=== PATIENT | male | born 1930 | race Caucasian/White ===

== ENCOUNTER → 2016-05-06 | Outpatient (REF) | payer MEDICARE ==
[~2016-05-06] MED LIST: CALC-173 PO; DONETAB6 PO; VITMTA PO
[2016-05-06 18:29] LABS: BASO % 0.2 % (0.0-1.0); EOS # 0.1 K/mm3 (0.0-0.50); EOS % 1.7 % (0.0-3.0); LARGE UNSTAINED CELL # 0.1 K/mm3 (0.0-0.4); LARGE UNSTAINED CELL % 2.3 % (0.0-4.0); LYMPH # 1.6 K/mm3 (1.5-4.5); MEAN CORPUSCULAR HEMOGLOBIN 32.6 pg (27.0-33.0); MEAN CORPUSCULAR HGB CONC 34.3 g/dl (32.0-36.5); MONO # 0.3 K/mm3 (0.0-0.8); MONO % 7.6 % (0.0-5.0); NEUTROPHILS # 2.1 K/mm3 (1.8-7.7); NEUTROPHILS % 51.3 % (36.0-66.0); PLATELET COUNT, AUTOMATED 100 k/mm3 (150-450); RED CELL DISTRIBUTION WIDTH 15.2 % (11.5-14.5); WHITE BLOOD COUNT 4.1 K/mm3 (4.0-10.0)
[2016-05-06 18:33] LABS: ALBUMIN 3.1 GM/DL (3.2-5.2); ALBUMIN/GLOBULIN RATIO 0.97 (1.00-1.93); ALKALINE PHOSPHATASE 90 U/L (45-117); ALT/SGPT 19 U/L (12-78); ANION GAP 9 MEQ/L (8-16); AST/SGOT 18 U/L (15-37); BILIRUBIN,TOTAL 0.9 MG/DL (0.2-1.0); BLOOD UREA NITROGEN 13 MG/DL (7-18); CALCIUM LEVEL 8.3 MG/DL (8.8-10.2); CARBON DIOXIDE LEVEL 26 MEQ/L (21-32); CHLORIDE LEVEL 108 MEQ/L (98-107); CREATININE FOR GFR 0.64 MG/DL (0.70-1.30); GLOMERULAR FILTRATION RATE > 60.0 (>35); GLUCOSE, FASTING 112 MG/DL (83-110); POTASSIUM SERUM 3.8 MEQ/L (3.5-5.1); SODIUM LEVEL 143 MEQ/L (136-145); TOTAL PROTEIN 6.3 GM/DL (6.4-8.2)
== END ==
LOC: M SFHCCLAY 09:31
PROVIDERS: ATTEND Family Medicine
DX: F43.21 Adjustment disorder with depressed mood (principal); G30.9 Alzheimer's disease, unspecified

== ENCOUNTER → 2016-05-26 | Outpatient (REF) | payer MEDICARE | LOC: M SFHCCLAY 12:01 | PROVIDERS: ATTEND Nurse Practitioner | DX: N30.01 Acute cystitis with hematuria (principal) ==

== ENCOUNTER → 2016-06-10 | Outpatient (REF) | payer MEDICARE | LOC: M SFHCCLAY 11:16 | PROVIDERS: ATTEND Family Medicine | DX: R31.9 Hematuria, unspecified (principal); Z53.8 Procedure and treatment not carried out for other reasons ==

== ENCOUNTER → 2016-07-01 | Outpatient (REF) | payer MEDICARE | LOC: M SFHCCLAY 11:41 | PROVIDERS: ATTEND Nurse Practitioner Family | DX: N39.0 Urinary tract infection, site not specified (principal) ==

== ENCOUNTER → 2016-07-23 | Outpatient (REF) | payer MEDICARE | LOC: M SFHCCLAY 14:36 | PROVIDERS: ATTEND Family Medicine | DX: C44.629 Squamous cell carcinoma of skin of left upper limb, including shoulder (principal) ==

== ENCOUNTER 2016-08-03 15:29 | Emergency (ER) | payer MEDICARE ==
[~2016-08-03] VITALS: Ht 182.9 cm; Wt 81.6 kg
[2016-08-03] MEDS ORDERED: NS 500 ML IV ONE (16:00)
--- NOTE | 2016-08-03 16:36 | REP ---
Portable chest, 04:18 p.m., 08/03/1926, 18, single AP view the patient sitting: Comparison is 2015. The lung llanos are clear. The cardiac size is normal. The loc, mediastinum, and bony thorax are unremarkable. Impression: Negative portable chest. Signed by Freddy Spencer MD 08/03/2016 04:27 P
[2016-08-03 16:37] LABS: BASO % 0.1 % (0.0-1.0); EOS # 0.1 K/mm3 (0.0-0.50); EOS % 1.6 % (0.0-3.0); LARGE UNSTAINED CELL # 0.1 K/mm3 (0.0-0.4); LARGE UNSTAINED CELL % 2.8 % (0.0-4.0); LYMPH # 1.7 K/mm3 (1.5-4.5); LYMPH % 39.3 % (24.0-44.0); MEAN CORPUSCULAR HEMOGLOBIN 32.4 pg (27.0-33.0); MEAN CORPUSCULAR HGB CONC 34.1 g/dl (32.0-36.5); MEAN CORPUSCULAR VOLUME 94.9 fl (80.0-96.0); MONO # 0.3 K/mm3 (0.0-0.8); MONO % 7.6 % (0.0-5.0); NEUTROPHILS # 1.9 K/mm3 (1.8-7.7); NEUTROPHILS % 48.5 % (36.0-66.0); PLATELET COUNT, AUTOMATED 111 k/mm3 (150-450); RED CELL DISTRIBUTION WIDTH 15.5 % (11.5-14.5)
[2016-08-03 17:11] LABS: ALBUMIN 2.8 GM/DL (3.2-5.2); ALKALINE PHOSPHATASE 89 U/L (45-117); ALT/SGPT 21 U/L (12-78); ANION GAP 8 MEQ/L (8-16); AST/SGOT 19 U/L (15-37); BILIRUBIN,DIRECT 0.3 MG/DL (0.0-0.2); BILIRUBIN,TOTAL 1.4 MG/DL (0.2-1.0); BLOOD UREA NITROGEN 16 MG/DL (7-18); CALCIUM LEVEL 8.8 MG/DL (8.8-10.2); CARBON DIOXIDE LEVEL 24 MEQ/L (21-32); CHLORIDE LEVEL 110 MEQ/L (98-107); CREATININE FOR GFR 0.62 MG/DL (0.70-1.30); GLOMERULAR FILTRATION RATE > 60.0 (>35); GLUCOSE, FASTING 80 MG/DL (83-110); POTASSIUM SERUM 3.8 MEQ/L (3.5-5.1); SODIUM LEVEL 142 MEQ/L (136-145); TOTAL PROTEIN 6.3 GM/DL (6.4-8.2)
[2016-08-03 19:45] LABS: CALCIUM OXALATE CRYSTALS SMALL
[2016-08-03] MEDS ORDERED: MACR100C3 PO (21:41)
[2016-08-03 21:46] VITALS: BP 142/63
[2016-08-03] MEDS ORDERED: NITR25SU3 PO (22:04)
--- NOTE | 2016-08-04 08:19 | ECGEPIP ---
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
== END 2016-08-03 22:37 | disposition home or self-care (01) ==
LOC: EDBD 15:29 → M ED 17:22
DX: G30.9 Alzheimer's disease, unspecified (principal); Z79.899 Other long term (current) drug therapy; Z88.1 Allergy status to other antibiotic agents

== ENCOUNTER 2016-09-06 19:50 | Emergency (ER) | payer MEDICARE ==
[~2016-09-06 19:50] MED LIST changes: +MACR100C43 PO; +NITR25SU3 PO
[2016-09-06 21:14] LABS: BASO % 0.2 % (0.0-1.0); EOS % 1.1 % (0.0-3.0); LARGE UNSTAINED CELL # 0.1 K/mm3 (0.0-0.4); LARGE UNSTAINED CELL % 2.2 % (0.0-4.0); LYMPH # 1.3 K/mm3 (1.5-4.5); LYMPH % 25.1 % (24.0-44.0); MEAN CORPUSCULAR HEMOGLOBIN 32.5 pg (27.0-33.0); MEAN CORPUSCULAR VOLUME 95.4 fl (80.0-96.0); MONO # 0.4 K/mm3 (0.0-0.8); MONO % 9.4 % (0.0-5.0); NEUTROPHILS # 2.9 K/mm3 (1.8-7.7); NEUTROPHILS % 62.1 % (36.0-66.0); PLATELET COUNT, AUTOMATED 114 k/mm3 (150-450); RED CELL DISTRIBUTION WIDTH 15.7 % (11.5-14.5); WHITE BLOOD COUNT 4.6 K/mm3 (4.0-10.0)
[2016-09-06 21:38] LABS: ALBUMIN 2.6 GM/DL (3.2-5.2); ALBUMIN/GLOBULIN RATIO 0.84 (1.00-1.93); ALKALINE PHOSPHATASE 158 U/L (45-117); ALT/SGPT 27 U/L (12-78); ANION GAP 5 MEQ/L (8-16); AST/SGOT 20 U/L (15-37); BILIRUBIN,DIRECT 0.5 MG/DL (0.0-0.2); BILIRUBIN,TOTAL 1.3 MG/DL (0.2-1.0); BLOOD UREA NITROGEN 13 MG/DL (7-18); CALCIUM LEVEL 8.7 MG/DL (8.8-10.2); CARBON DIOXIDE LEVEL 30 MEQ/L (21-32); CHLORIDE LEVEL 108 MEQ/L (98-107); CREATININE FOR GFR 0.78 MG/DL (0.70-1.30); GLOMERULAR FILTRATION RATE > 60.0 (>35); GLUCOSE, FASTING 111 MG/DL (83-110); SODIUM LEVEL 143 MEQ/L (136-145); TOTAL PROTEIN 5.7 GM/DL (6.4-8.2)
--- NOTE | 2016-09-06 22:10 | REPUSA ---
CLINICAL HISTORY: Fall, AMS COMPARISON: No study for comparison is available at the time of interpretation. TECHNIQUE: Head CT without contrast Brain: There is moderate diffuse parenchymal atrophy. There is periventricular white matter low atten uation consistent with small vessel ischemic change. No intracranial hemorrhage, hydrocephalus, acute parenchymal edema or evident mass. Calvarium: Unremarkable. Sinuses (partially visualized): Clear. IMPRESSION: Chronic changes of small vessel ischemic disease, without intracranial hemorrhage.
[2016-09-06 23:28] VITALS: BP 116/65
--- NOTE | 2016-09-07 07:23 | REP ---
AP pelvis and bilateral hips: AP pelvis: Comparison is a CT abdomen and pelvis dated 10/22/2015. No pelvic fracture is identified. The sacroiliac articulations and/or left hip articulations are unremarkable. There are calcifications inferiorly in the pelvis bilaterally, unchanged from the comparison CT, likely phleboliths. Impression: No pelvic fracture. Right hip two views: There is no fracture or dislocation. Mineralization joint space are unremarkable. No femoral head deformity. Impression: Negative right hip. Left hip two views: There is no fracture or dislocation. Mineralization joint space are normal. There are no calcifications or foreign bodies. Impression: Negative left hip. Signed by Freddy Spencer MD 09/07/2016 07:14 A
== END 2016-09-06 23:40 | disposition home or self-care (01) ==
LOC: M ED 19:50 → EDBD 19:50 → M ED 23:40
DX: Z91.81 History of falling (principal); G30.9 Alzheimer's disease, unspecified; F02.80 Dementia in other diseases classified elsewhere, unspecified severity, without behavioral disturbance, psychotic disturbance, mood disturbance, and anxiety

== ENCOUNTER 2016-11-10 19:15 | Observation (INO) | payer MEDICARE ==
[~2016-11-10] VITALS: Ht 182.9 cm; Wt 71.0 kg
[2016-11-10 21:01] LABS: BASO % 0.2 % (0.0-1.0); EOS % 0.8 % (0.0-3.0); LARGE UNSTAINED CELL # 0.2 K/mm3 (0.0-0.4); LARGE UNSTAINED CELL % 5.4 % (0.0-4.0); LYMPH # 1.3 K/mm3 (1.5-4.5); LYMPH % 35.7 % (24.0-44.0); MEAN CORPUSCULAR VOLUME 94.3 fl (80.0-96.0); MONO # 0.4 K/mm3 (0.0-0.8); MONO % 11.3 % (0.0-5.0); NEUTROPHILS # 1.7 K/mm3 (1.8-7.7); NEUTROPHILS % 46.5 % (36.0-66.0); PLATELET COUNT, AUTOMATED 118 k/mm3 (150-450); WHITE BLOOD COUNT 3.7 K/mm3 (4.0-10.0)
[2016-11-10 21:55] LABS: ALBUMIN 2.5 GM/DL (3.2-5.2); ALBUMIN/GLOBULIN RATIO 0.74 (1.00-1.93); ALKALINE PHOSPHATASE 106 U/L (45-117); ALT/SGPT 19 U/L (12-78); ANION GAP 3 MEQ/L (8-16); AST/SGOT 27 U/L (15-37); BILIRUBIN,DIRECT 0.3 MG/DL (0.0-0.2); BILIRUBIN,TOTAL 1.2 MG/DL (0.2-1.0); BLOOD UREA NITROGEN 11 MG/DL (7-18); CALCIUM LEVEL 8.8 MG/DL (8.8-10.2); CARBON DIOXIDE LEVEL 30 MEQ/L (21-32); CHLORIDE LEVEL 107 MEQ/L (98-107); CREATININE FOR GFR 0.47 MG/DL (0.70-1.30); GLOMERULAR FILTRATION RATE > 60.0 (>35); GLUCOSE, FASTING 74 MG/DL (83-110); POTASSIUM SERUM 4.5 MEQ/L (3.5-5.1); SODIUM LEVEL 140 MEQ/L (136-145); TOTAL PROTEIN 5.9 GM/DL (6.4-8.2)
[2016-11-10] MEDS ORDERED: NS 500 ML IV ONE (22:15)
[2016-11-10 22:31] LABS: T UPTAKE 33 % (33-40); THYROXINE (T4) 8.5 UG/DL (4.5-12.0)
[2016-11-10] MEDS ORDERED: patient comment (23:26)
[2016-11-10] MEDS ORDERED: PATIENT COMMENT (23:28)
[2016-11-10] MEDS ORDERED: ACETAMINOPHEN TAB 650MG DOSE (2X325MG) PO PRN (23:45)
[2016-11-11] MEDS ORDERED: NS 500 ML IV ONE (00:15)
--- NOTE | 2016-11-11 01:11 | HPE ---
DATE OF ADMISSION: 11/10/2016 PRIMARY CARE PROVIDER: Dr. 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 Patient is not able to answer questions due to baseline dementia. Information was gathered from the patient's daughters. Per patient's proxy, at baseline patient had intermittent decrease in oral intake; however, sometimes he can tolerate some liquids. For the past few days, patient was noted to sleep more, and patient is not able to drink or eat much, or sometimes he does not consume liquids at all. Patient also noted to have increased weakness. Yesterday, in the last 24 hours, patient has been sleeping more than usual. The daughter is afraid that patient is experiencing severe dehydration, and therefore they sent the patient to [facility] for further evaluation and treatment. Denied any fevers or chills. Patient is using diapers at baseline. Patient also noted to have some increased cough, but there is no clear sputum production. The cough is very intermittent. Patient's family members feel it is getting more difficult to take care of the patient at home. They are seeking for more assistance to take care of the patient. ALLERGIES: CIPROFLOXACIN. PAST MEDICAL HISTORY: 1. Alzheimer dementia. 2. TB as a child. 3. History of iron deficiency anemia. 4. History of adjustment disorder with a depressed mood. PAST SURGICAL HISTORY: 1. Appendectomy. 2. Tonsillectomy. 3. Right cataract surgery . SOCIAL HISTORY: Patient used to smoke. Quit in the 1970s. Denied alcohol use. Denied recreational drug use. Patient's proxy is his daughter. Currently the patient's daughter is reviewing the medical order for life-sustaining treatment (MOLST) form. She requires some time to make a final decision. REVIEW OF SYSTEMS: Limited information from the patient. Information gathered from the proxy. GENERAL: Very significant decrease in oral intake, both liquid and solid. More significant in the last few days. Patient became more lethargic. No fever. No chills. CARDIOVASCULAR: No sign of chest pain. RESPIRATORY: There is some intermittent cough. No sputum production. GASTROINTESTINAL: No nausea. No vomiting. OBJECTIVE: Vital signs: Temperature 97.5, pulse is 42, respirations 14, blood pressure 133/56, pulse oximetry 95% in room air. PHYSICAL EXAMINATION: GENERAL: Patient is very cachectic. Alert and awake. Not able to answer questions. Not able to follow commands. HEENT: Normocephalic, atraumatic. Positive temporal wasting. Patient shows significant dry oral mucosa. CARDIOVASCULAR: Positive S1, S2, slightly bradycardic. RESPIRATORY: Clear to auscultation. ABDOMEN: Soft, nontender, nondistended. EXTREMITIES: No edema. NEUROLOGIC: Unable to test. LABORATORY DATA: WBC 3.7, hemoglobin 10.8, hematocrit 31, platelet count is 118. Sodium is 140, potassium 4.5, chloride is 107, carbon dioxide 30, BUN 11, creatinine 0.47, GFR greater than 60, fasting glucose 74, lactic acid 1.1, calcium 8.8. Total bilirubin is 1.2, direct bilirubin 0.3, AST 27, ALT 19, alkaline phosphatase 106. Ammonia level 20. Total CK is 189. Troponin I is less than 0.02. Total protein 5.9, albumin 2.5. T4 is 8.5. ASSESSMENT AND PLAN: 1. Protein calorie malnutrition. Patient admitted to medical/surgical floor on observation status. At baseline, patient has been having difficulty with oral intake. Has been persistent for some duration. The caregiver, the patient's daughter, stated intermittently he is able to consume liquid, and sometimes he will eat solids. For the past few days, patient has significant decrease of oral intake. Patient was noted to have increased lethargy. Complete blood count (CBC) and basic metabolic panel (BMP) do not show any significant findings. Patient also has a normal ammonia level. Will followup with respiratory panel and urinalysis to rule out any reversible cause for the patient's current presentation. Clinically patient shows significant dehydration. In the emergency room patient received 500 mL fluid bolus. Will continue to hydrate the patient with another fluid bolus. Patient's proxy is still reviewing the medical order for life-sustaining treatment (MOLST) form. Not able to make a decision at this time. She stated she would like to discuss with the medical team tomorrow morning after some time to discuss with the family members, and she stated if this is going to be the patient's new baseline, they require more assistance at home to take care of the patient. 2. History of Alzheimer disease with dementia. Per medical report and radiology preliminary report, patient had some combativeness. At the time of encounter. Patient is not agitated. Continue to monitor. 3. History of constipation. Will follow intake and output. 4. History of tuberculosis (TB). As a child. Information obtained from the family member. 5. Deep vein thrombosis (DVT) prophylaxis, on heparin. MTDD
[2016-11-11] MEDS ORDERED: LORazepam 1 MG TAB PO PRN (01:15)
[2016-11-11] MEDS ORDERED: SCOPOLAMINE 1.5 MG TRANSDERMAL TD PRN (01:15)
[2016-11-11] MEDS ORDERED: MORPHINE 10MG/0.5ML ORAL CONCENTRATE SOLUTION U/D SL PRN (01:15)
[2016-11-11 01:44] VITALS: BP 152/65
--- NOTE | 2016-11-11 05:58 | ECGEPIP ---
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 RBBB NSTTW ABNORMALITIES Electronically Signed On 11-11-2016 5:57:50 EDT by Delio Lombardo
[2016-11-11 06:00] VITALS: BP 145/66
[2016-11-11] MEDS ORDERED: HEPARIN SOD (PORCINE) 5000 UNITS/ML VIAL SC SCH (06:00)
--- NOTE | 2016-11-11 07:46 | REP ---
Portable chest, 10:50 p.m., single AP view, the patient semi upright: Comparisons 08/03/2016, 10/22/2015 and 2015. There is chronic stable enlargement g left hilus, unchanged from all prior studies. The lung llanos otherwise clear. Cardiac size normal. Mediastinum and bony thorax unremarkable. Impression: Chronic stable enlargement of the left hilus. No acute cardiopulmonary findings. Signed by Freddy Spencer MD 11/11/2016 07:37 A
--- NOTE | 2016-11-11 08:07 | IPNPDOC ---
Subjective Date Seen The patient was seen on 11/11/16. Subjective Chief Complaint/HPI The patient is a 86-year-old male admitted with a reason for visit of Dehydration, Failure To Thrive In Adult. Events since last encounter Pt minimally responsive. General: Reports: ROS Unobtainable Objective Physical Examination General Exam: Positive: No Acute Distress, Negative: Alert ENT Exam: Positive: Mucous membr. moist/pink Chest Exam: Positive: Diminished Heart Exam: Positive: Rate Normal, Normal S1, Normal S2 Assessment /Plan Problems (1) Comfort measures only status Status: Acute Response to Treatment: Stable Discussed With: Nurse Problem Specific Plan: Monitor Clinically Problem Text: Pt with Roxanol, Ativan and scopalamine orders in place. MOLST TAILER IN status completed and in the chart. I spoke with nursing regarding Clarifying plans with family for home with Hospice, Hospice house options. They will let me know if the family arrives this morning, will reach out to them if not. (2) Dementia Status: Chronic Response to Treatment: Progressing Plan/VTE VTE Prophylaxis Ordered?: No VS, I&O, 24H, Fishbone Vital Signs/I&O Vital Signs Date Time Temp Pulse Resp B/P (MAP) Pulse Ox O2 Delivery O2 Flow Rate FiO2 11/11/16 06:00 98.3 50 16 145/66 (92) 96 Room Air I&O- Last 24 Hours up to 6 AM 11/11/16 06:00 Intake Total 0 ml Balance 0 ml Laboratory Data 24H LABS Laboratory Tests 2 11/10/16 19:49: White Blood Count 3.7L, Red Blood Count 3.29L, Hemoglobin 10.8L, Hematocrit 31.0L, Mean Corpuscular Volume 94.3, Mean Corpuscular Hemoglobin 33.0, Mean Corpuscular Hemoglobin Concent 35.0, Red Cell Distribution Width 15.0H, Platelet Count 118L, Neutrophils (%) (Auto) 46.5, Lymphocytes (%) (Auto) 35.7, Monocytes (%) (Auto) 11.3H, Eosinophils (%) (Auto) 0.8, Basophils (%) (Auto) 0.2 , Neutrophils # (Auto) 1.7L, Lymphocytes # (Auto) 1.3L, Monocytes # (Auto) 0.4, Eosinophils # (Auto) 0.0, Basophils # (Auto) 0.0, Large Unclassified Cells % 5.4H, Large Unclassified Cells # 0.2 11/10/16 21:19: Anion Gap 3L, Glomerular Filtration Rate > 60.0, Lactic Acid Level 1.1, Calcium Level 8.8, Aspartate Amino Transf (AST/SGOT) 27, Alanine Aminotransferase (ALT/ SGPT) 19, Alkaline Phosphatase 106, Total Bilirubin 1.2H, Direct Bilirubin 0.3H , Ammonia 20, Total Creatine Kinase 189, Creatine Kinase MB 3.5, Creatine Kinase MB Relative Index 1.85, Troponin I < 0.02, Total Protein 5.9L, Albumin 2.5L, Albumin/Globulin Ratio 0.74L, Thyroid Stimulating Hormone (TSH) 2.020, Free Thyroxine Index 2.8, Thyroxine (T4) 8.5, Triiodothyronine (T3) Uptake 33 CBC/BMP Laboratory Tests 11/10/16 19:49 Red Blood Count 3.29 L, Mean Corpuscular Volume 94.3, Mean Corpuscular Hemoglobin 33.0, Mean Corpuscular Hemoglobin Concent 35.0, Red Cell Distribution Width 15.0 H, Neutrophils (%) (Auto) 46.5, Lymphocytes (%) (Auto) 35.7, Monocytes (%) (Auto) 11.3 H, Eosinophils (%) (Auto) 0.8, Basophils (%) ( Auto) 0.2, Neutrophils # (Auto) 1.7 L, Lymphocytes # (Auto) 1.3 L, Monocytes # ( Auto) 0.4, Eosinophils # (Auto) 0.0, Basophils # (Auto) 0.0 11/10/16 21:19 ANNA CERRATO PA-C Nov 11, 2016 08:07
[2016-11-11] MEDS ORDERED: LORA0.5T11 PO (12:04)
[2016-11-11] MEDS ORDERED: LEVS0.124 SL (12:04)
[2016-11-11] MEDS ORDERED: MORP1SOL SL (12:04)
--- NOTE | 2016-11-11 14:03 | DSES ---
DATE OF ADMISSION: 11/10/2016 DATE OF DISCHARGE: 11/11/2016 REASON FOR ADMISSION: Mr. Hawkins was admitted from the emergency department after presenting with his family accompanying. He has Alzheimer's disease and been gradually declining. Family was concerned that maybe there was a treatable problem that should be addressed and identified. The patient has a low albumen of 2.5 consistent with protein calorie malnutrition. Otherwise his laboratory data were essentially normal with BUN and creatinine normal. The daughter has been working hard to keep him hydrated with between encouraging beverages and having him consume high water content fruits such as watermelon and similar. The patient's family did eventually decide on a medical orders for life-sustaining treatment (MOLST) form selecting comfort measures and consented to hospice consult. The patient was admitted initially as observation status. The patient and family today electing to take the patient home with hospice consult and service support. DISCHARGE DIAGNOSES: Dementia. Protein calorie malnutrition typical for moderate to advanced dementia. PLAN: Home with hospice care support. Activity and diet as tolerated.
[2016-11-13] MEDS ORDERED: INFLUENZA VIRUS VACCINE HIGH DOSE 0.5 ML SYRINGE (90662) IM ONE (09:00)
== END 2016-11-11 12:55 | disposition home or self-care (01) ==
LOC: EDBD 19:15 → M ED 19:15 → M ED INP 19:16 → M MS5PR 11-11 01:23
PROVIDERS: ADMIT Internal Medicine; ATTEND Family Medicine
DX: G30.9 Alzheimer's disease, unspecified (principal); F02.80 Dementia in other diseases classified elsewhere, unspecified severity, without behavioral disturbance, psychotic disturbance, mood disturbance, and anxiety; E44.0 Moderate protein-calorie malnutrition; Z87.891 Personal history of nicotine dependence
CPT/HCPCS: 36415; 71010; 80048; 80076; 82140; 82550; 82553; 83605; 84436; 84443; 84479; 84484; 85025; 93005; 96372; 99284; G0378